=== PATIENT | male | born 1965 | race Caucasian/White ===

== ENCOUNTER 2022-05-27 10:37 | Inpatient (IN) | payer MEDICAID ==
[2022-05-27] VITALS (8 sets, daily range): BP systolic 98–154
[~2022-05-27] VITALS: Ht 177.8 cm; Wt 79.8 kg
[~2022-05-27 10:37] MED LIST: METOCLOPRAMIDE HCL 10 MG/2 ML VIAL IVP ONE
--- NOTE | 2022-05-27 10:41 | NUR ---
Placed in room 07 . Placed on cardiac nurse specialist, blood pressure machine and pulse oximeter. To gown for exam. Side rails up.
--- NOTE | 2022-05-27 10:42 | NUR ---
RECEIVED PT FROM CONNER CHAPPELL. PT BIB FRIEND FOR GENERALIZED WEAKNESS, N/V AND STATES HIS B/P IS HIGH. TELEMONITOR SHOWS SINUS TACH HR 130S., RESP 30BPM, NORMOTHERMIC. SKIN PALE, INTACT, NO EDEMA. DISTAL PULSES NORMAL. DENIES PAIN. SIDERAILS UP X2.
--- NOTE | 2022-05-27 10:50 | NUR ---
# 20 gauge angiocath placed to LAC. Use of asceptic technique. Opsite placed over site. Blood return noted. Blood for lab drawn from site. Flushed with 10 cc of normal saline. No evidence of infiltration noted. Patient tolerated well.
[2022-05-27] MEDS ORDERED: NACL 0.9% 1,000 ML IV ONE (11:00)
[2022-05-27] MEDS ORDERED: ONDANSETRON HCL 4 MG/2 ML VIAL IVP ONE ×2 (11:00→17:00)
[2022-05-27 11:12] LABS: BASOPHILS # (AUTO) 0.1 K/uL (0.0-0.2); BASOPHILS % (AUTO) 0.5 % (0.0-2.0); HEMOGLOBIN 9.1 g/dL (14.0-18.0); LYMPHOCYTES # (AUTO) 1.3 K/uL (1.0-5.5); LYMPHOCYTES % (AUTO) 11.8 % (20.5-51.5); MEAN CORPUSCULAR HEMOGLOBIN 31 pg (27-31); MEAN CORPUSCULAR HGB CONC 34 % (32-36); MEAN CORPUSCULAR VOLUME 91 fL (79.0-98.0); MONOCYTES # (AUTO) 0.8 K/uL (0.0-1.0); MONOCYTES % (AUTO) 7.7 % (1.7-9.3); NEUTROPHILS # (AUTO) 8.8 K/uL (1.8-7.7); PLATELET COUNT (AUTO) 229 K/uL (130-430); RED BLOOD CELL COUNT(AUTO) 2.96 MIL/uL (4.2-6.2); RED CELL DISTRIBUTION WIDTH 15.5 % (9.0-15.0); WHITE BLOOD COUNT (AUTO) 10.9 K/uL (4.8-10.8)
--- NOTE | 2022-05-27 11:15 | NUR ---
SCHEDULED MEDS GIVEN AND TOLERATED WELL .
[2022-05-27 11:25] LABS: ANION GAP 14 (5-15); CALCIUM 8.8 mg/dL (8.4-11.0); CHLORIDE 106 mmol/L (98-107); CREATININE 1.13 mg/dL (0.55-1.30); GLUCOSE 202 mg/dL (70-99); UREA NITROGEN, BLOOD 21 mg/dL (8-21)
[2022-05-27 11:28] LABS: GFR AFRICAN AMERICAN 85 mL/min (>90)
[2022-05-27 11:33] LABS: ALANINE AMINOTRANSFERASE 47 U/L (12-78); ALBUMIN 2.7 g/dL (3.4-4.8); ASPARTATE AMINOTRANSFERASE 84 U/L (10-37); LIPASE 160 U/L (73-393); TOTAL BILIRUBIN 2.2 mg/dL (0.0-1.0)
[2022-05-27] MEDS ORDERED: PIPERACILLIN/TAZO 3.375 GM in NS 50 ML IV ONE (12:45)
[2022-05-27] MEDS ORDERED: VANCOMYCIN HCL 1,000 MG in NS 250 ML IV ONE (12:45)
[2022-05-27] MEDS ORDERED: NACL 0.9% 1,500 ML IV ONE (12:45)
[2022-05-27] MEDS ORDERED: PANTOPRAZOLE SODIUM 40 MG TAB PO ONE (13:15)
[2022-05-27 14:10] LABS: INR 1.4 (0.80-1.20); PROTHROMBIN TIME 13.9 SECS (9.5-12.5)
[2022-05-27] MEDS ORDERED: FOLIC ACID 1 MG, THIAMINE HCL 100 MG, MAGNESIUM SULFATE 1 GM, MVI 10 ML in NACL 0.9% 1,... IV ONE (14:15)
[2022-05-27] MEDS ORDERED: PANTOPRAZOLE SODIUM 40 MG/VIAL (PROTONIX) IVP ONE (14:15)
--- NOTE | 2022-05-27 14:16 | NUR ---
SCHEDULED MEDS GIVEN AND TOLERATED WELL. DENIES PAIN
[2022-05-27] MEDS ORDERED: VANCOMYCIN HCL 1000 MG/VIAL IV ONE (14:18)
[2022-05-27] MEDS ORDERED: PIPERACILLIN/TAZOBACTAM 3.375 GM/VIAL (ZOSYN) IV ONE ×3 (14:19→22:40)
--- NOTE | 2022-05-27 14:33 | NUR ---
PT GIVEN PROTONIX 80MG IVP FOR GI BLEED. INFORMED CONSENT OBTAINED FOR CT SCAN WITH CONTRAST, PT TAKEN TO C/T SCAN AT THIS TIME.
[2022-05-27] MEDS ORDERED: THIAMINE HCL 100 MG, MAGNESIUM SULFATE 1 GM in NS 100 ML IV ONE (15:00)
[2022-05-27] MEDS ORDERED: FOLIC ACID 1 MG, MVI 10 ML in NACL 0.9% 1,000 ML IV ONE (15:00)
--- NOTE | 2022-05-27 16:01 | NUR ---
DR HOPE SPEAKING WITH STAT RAD
--- NOTE | 2022-05-27 16:13 | NUR ---
DR HOPE SPEAKING WITH CONSULT DR ACOSTA.
[2022-05-27] MEDS ORDERED: OCTREOTIDE ACETATE 50 MCG/ML AMP IVP ONE (16:15)
[2022-05-27 16:30] LABS: BASOPHILS % (AUTO) 0.3 % (0.0-2.0); HEMATOCRIT 22.1 % (36-54); LYMPHOCYTES # (AUTO) 1.2 K/uL (1.0-5.5); LYMPHOCYTES % (AUTO) 11.9 % (20.5-51.5); MEAN CORPUSCULAR HEMOGLOBIN 32 pg (27-31); MEAN CORPUSCULAR HGB CONC 34 % (32-36); MEAN CORPUSCULAR VOLUME 92 fL (79.0-98.0); MONOCYTES # (AUTO) 0.8 K/uL (0.0-1.0); MONOCYTES % (AUTO) 7.6 % (1.7-9.3); NEUTROPHILS # (AUTO) 8.2 K/uL (1.8-7.7); NEUTROPHILS % (AUTO) 80.2 % (40.0-70.0); PLATELET COUNT (AUTO) 182 K/uL (130-430); RED BLOOD CELL COUNT(AUTO) 2.39 MIL/uL (4.2-6.2); RED CELL DISTRIBUTION WIDTH 15.5 % (9.0-15.0); WHITE BLOOD COUNT (AUTO) 10.3 K/uL (4.8-10.8)
[2022-05-27 16:32] LABS: HEMOGLOBIN 7.5 g/dL (14.0-18.0)
[2022-05-27] MEDS ORDERED: ESOM5SUS PO (16:36)
[2022-05-27] MEDS ORDERED: METO50TA7 PO (16:36)
[2022-05-27] MEDS: OCTREOTIDE ACETATE 1,250 MCG in NS 248.75 ML IV SCH ×2 (16:57→18:19)
[2022-05-27] MEDS ORDERED: PHYTONADIONE 10 MG in NS 50 ML IV ONE (17:00)
--- NOTE | 2022-05-27 17:10 | NUR ---
DR. MARTINEZ AND DR. NICHOLSON MADE AWARE PT IS VOMITING BRIGHT RED BLOOD X2. PT HGB WAS 9.1 AT 1100 AND THE NEW HGB IS 7/5. DR. NICHOLSON GAVE ORDER TO INTUBATE PT, OBTAIN CONSENT FOR STAT EGD. GIVE 2 UNIT PRBC WIDE OPEN WITHIN 2 HOURS.
[2022-05-27] MEDS: PANTOPRAZOLE SODIUM 40 MG in NS 50 ML IV SCH (17:15)
--- NOTE | 2022-05-27 17:55 | NUR ---
ONE UNIT OF 2 UNITS PRBC INITITATED.
[2022-05-27] MEDS ORDERED: ONDANSETRON HCL 4 MG/2 ML VIAL IVP PRN ×2 (18:00→22:00)
--- NOTE | 2022-05-27 18:00 | NUR ---
SPOKE TO DR. MARTINEZ RECEIVED ORDERS TO UPGRADE PATIENT TO ICU
--- NOTE | 2022-05-27 18:03 | NUR ---
Admit bed requested Patient will be admitted to care of . Admitted to ICU unit. Diagnosis GI BLEED Inpatient (Yes or No) Y Observation (Yes or No) N Orientation concerns or request close to nursing station (Yes or No) N Covid Status - On vent or bipap Y Isolation requirements INFLUENZA B+ Needs a sitter From Home (Yes or if No enter name of facility) Requires Dialysis (Yes or No) N Med Rec Completed (Yes of No) Y
--- NOTE | 2022-05-27 18:10 | NUR ---
DR. HOPE AT BEDSIDE TO INITIATE ETT. 20MG IVP ETOMIDATE AND 120MG IVP GIVEN. R/T ASSISTING AT BEDSIDE. 7.52 ETT PLACED AT 22 LIPLINE. PROPOFOL INITIATED AT 20MG/KG/MIN PER DR. HOPE. PT AGITATED AND FIGHTING VENT, 20MG PROPOFOL IVP GIVEN. PT MAINTAINING AGITATION PROPOFOL INCREASED TO 40MCG/KG/MIN. PT FIGHTING VENT 20MG IVP GIVEN X2. FENTANYL 25MCG/HOUR INITATED. PT HYPOTENSIVE 88/45 500 CC BOLUS INTIATED. FENTANYL STOPPED. PT FIGHTING VENT 30MCG PROPOFOL IVP GIVEN IN A SERIES OF 3 IVP. PT B/P INPROVED 175/ 60. FENTANYL STARTED AGAIN AT 25MCG/HOUR. PT RECEIVED 2 NEW IV LINES, 20G TO RH AND 20 TO LH.
[2022-05-27] MEDS ORDERED: PROPOFOL DRIP 100 ML IV PRN ×3 (18:15→22:30)
[2022-05-27] MEDS ORDERED: FENTANYL CITRATE-0.9 % NACL/PF 100 ML IV PRN ×2 (18:15→22:00)
[2022-05-27] MEDS ORDERED: FENTANYL CITRATE-0.9 % NACL/PF 100 ML IV ONE (18:29)
--- NOTE | 2022-05-27 18:40 | NUR ---
SECOND UNIT OF 2 UNITS ORDERED PRBC INITIATED.
[2022-05-27] MEDS ORDERED: METOCLOPRAMIDE HCL 10 MG/2 ML VIAL ONE (18:54)
[2022-05-27] MEDS ORDERED: EPINEPHrine JECT 0.1 MG/ML SYR ONE (19:04)
--- NOTE | 2022-05-27 19:29 | NUR ---
PT STABLE, ON PROPOFOL AT 40MCG/KG/MINUTE. FENTANYL RUNNING AT 25MCG/HOUR, PROTONIX 10MG/HOUR.
[2022-05-27] MEDS ORDERED: NS 500 ML IV ONE (19:30)
[2022-05-27] MEDS ORDERED: MIDAZOLAM HCL 5 MG/5 ML VIAL ONE (19:33)
--- NOTE | 2022-05-27 19:48 | NUR ---
ENDORSED PT YOUNG RN WITH GI. ALL QUESTIONS AND CONCERNS ADDRESSED.
[2022-05-27] MEDS ORDERED: PROPOFOL DRIP 100 ML IV ONE (19:54)
[2022-05-27] MEDS ORDERED: PIPERACILLIN/TAZO 3.375/DEX-IS 50 ML IV SCH (20:00)
[2022-05-27 20:48] LABS: HEMOGLOBIN 8.4 g/dL (14.0-18.0)
--- NOTE | 2022-05-27 20:50 | NUR ---
Patient received in ICU from GI nurses. Patient intubated/sedated. Friend in waiting room. Orders to be completed. New orders to be clarified and received. transportation analyst and bedside RN unsure as to what the endorsed transfer order is. Dr Griggs to be paged to clarify. Patient pulling at lines tubes and requiring increased sedation.
[2022-05-27 20:53] LABS: BASOPHILS # (AUTO) 0.1 K/uL (0.0-0.2); BASOPHILS % (AUTO) 0.7 % (0.0-2.0); HEMATOCRIT 24.2 % (36-54); LYMPHOCYTES # (AUTO) 1.5 K/uL (1.0-5.5); LYMPHOCYTES % (AUTO) 11.3 % (20.5-51.5); MEAN CORPUSCULAR HEMOGLOBIN 32 pg (27-31); MEAN CORPUSCULAR HGB CONC 35 % (32-36); MEAN CORPUSCULAR VOLUME 92 fL (79.0-98.0); MONOCYTES # (AUTO) 1.2 K/uL (0.0-1.0); MONOCYTES % (AUTO) 9.3 % (1.7-9.3); NEUTROPHILS # (AUTO) 10.6 K/uL (1.8-7.7); NEUTROPHILS % (AUTO) 78.7 % (40.0-70.0); PLATELET COUNT (AUTO) 155 K/uL (130-430); RED BLOOD CELL COUNT(AUTO) 2.64 MIL/uL (4.2-6.2); RED CELL DISTRIBUTION WIDTH 15.6 % (9.0-15.0); WHITE BLOOD COUNT (AUTO) 13.5 K/uL (4.8-10.8)
[2022-05-27] MEDS ORDERED: CALCIUM CHLORIDE 1 GM in NS 100 ML IV PRN (21:45)
[2022-05-27] MEDS ORDERED: PANTOPRAZOLE SODIUM 40 MG/VIAL (PROTONIX) ONE (21:55)
--- NOTE | 2022-05-27 22:00 | NUR ---
DR MICHELLE Griggs called giving orders to continue Remberto varghese.
--- NOTE | 2022-05-27 22:15 | NUR ---
HIGH ALERT NOTE: Called Dr. Griggs back at [id number] identified within the medical roster to verify physician authenticity. For Diprivan drip order. Orders also received, 1.NS @ 100ml/hr 2.Continue Diprivan drip for sedation while on Vent. 3.May start Levophed drip if needed to maintain BP. 4.Transfuse 1unit of PRBC 5.Transfuse 2units of FFP after unit of PRBC 6.CBC 1hour post transfusion of PRBC & FFP.
[2022-05-27] MEDS ORDERED: NOREPINEPHRINE BITARTRATE 4 MG in D5W 246 ML IV PRN (22:30)
[2022-05-27] MEDS ORDERED: NACL 0.9% 1,000 ML IV SCH (22:30)
--- NOTE | 2022-05-27 22:36 | NUR ---
CONSULTATION PAGED/CALLED Reason for Consultation: Intubated Person Who was Notified: Nikki Consulting Physician: Dr Merida Field Manager Specialty: Pulmonary Ordering Physician: Dr Griggs
[2022-05-27 23:18] LABS: HEMATOCRIT 26.1 % (36-54)
--- NOTE | 2022-05-27 23:20 | NUR ---
Dr Guallpa notified of consult and patient ABG/vent settings. Ordered increase of Propofol up to 70mcg/kg/min PRN as patient continues to pull at lines/tubes under current sedation.
[2022-05-27] MEDS ORDERED: FLU VACC QS2022-23(6MOS UP)/PF 0.5 ML/SYR SYRINGE I.M. PRN (23:30)
[2022-05-27] MEDS ORDERED: SUCCINYLCHOLINE CHLORIDE 20 MG/ML(QUELICIN) IVP ONE (23:50)
[2022-05-27] MEDS ORDERED: ETOMIDATE 20 MG/ 10 ML VIAL (AMIDATE) IVP ONE (23:50)
[2022-05-28] VITALS: BP_SYST 88
[2022-05-28] MEDS: PANTOPRAZOLE SODIUM 40 MG in NS 50 ML IV SCH (00:12)
[2022-05-28 00:22] LABS: BASOPHILS # (AUTO) 0.1 K/uL (0.0-0.2); BASOPHILS % (AUTO) 0.5 % (0.0-2.0); EOSINOPHILS % (AUTO) 0.1 % (0.0-4.0); HEMATOCRIT 26.3 % (36-54); LYMPHOCYTES # (AUTO) 2.1 K/uL (1.0-5.5); LYMPHOCYTES % (AUTO) 14.9 % (20.5-51.5); MEAN CORPUSCULAR HEMOGLOBIN 32 pg (27-31); MEAN CORPUSCULAR HGB CONC 34 % (32-36); MEAN CORPUSCULAR VOLUME 92 fL (79.0-98.0); NEUTROPHILS # (AUTO) 10.7 K/uL (1.8-7.7); NEUTROPHILS % (AUTO) 77.5 % (40.0-70.0); PLATELET COUNT (AUTO) 161 K/uL (130-430); RED BLOOD CELL COUNT(AUTO) 2.87 MIL/uL (4.2-6.2); RED CELL DISTRIBUTION WIDTH 15.4 % (9.0-15.0); WHITE BLOOD COUNT (AUTO) 13.8 K/uL (4.8-10.8)
[2022-05-28] MEDS ORDERED: NS 1000 ML IV.SOLN IV ONE (00:30)
[2022-05-28 01:00] VITALS: BP_SYST 104
--- NOTE | 2022-05-28 01:16 | NUR ---
Report given to ACLS transport and called to [facility] trauma unit nurse Kostas. Patient's friend Shiraz called as well. See vital signs immediately prior to transfer. 1L bolus currently infusing, unit of PRBC currently infusing upon transfer.
== END 2022-05-28 01:30 | disposition home or self-care (01) ==
LOC: SED 10:37 → STU 14:15 → SIC 20:50
PROVIDERS: ADMIT Internal Medicine; ATTEND Internal Medicine
PROC: 5A1935Z Respiratory Ventilation, Less than 24 Consecutive Hours (ICD-10-PCS; 2022-05-27)
PROC: 30233N1 Transfusion of Nonautologous Red Blood Cells into Peripheral Vein, Percutaneous Approach (ICD-10-PCS; 2022-05-27)
PROC: 0BH17EZ Insertion of Endotracheal Airway into Trachea, Via Natural or Artificial Opening (ICD-10-PCS; 2022-05-27)
PROC: 06L38CZ Occlusion of Esophageal Vein with Extraluminal Device, Via Natural or Artificial Opening Endoscopic (ICD-10-PCS; principal; 2022-05-27 19:00)
DX: K74.60 Unspecified cirrhosis of liver (principal); I85.11 Secondary esophageal varices with bleeding; E44.0 Moderate protein-calorie malnutrition; I86.4 Gastric varices; D68.9 Coagulation defect, unspecified; D62 Acute posthemorrhagic anemia; K20.90 Esophagitis, unspecified without bleeding; I10 Essential (primary) hypertension; F10.20 Alcohol dependence, uncomplicated; Y90.9 Presence of alcohol in blood, level not specified; K29.70 Gastritis, unspecified, without bleeding; Z20.822 Contact with and (suspected) exposure to COVID-19; Z68.25 Body mass index [BMI] 25.0-25.9, adult
CPT/HCPCS: 36415; 36600; 43255; 71045; 76376; 80053; 82803-TC; 83605; 83690; 84484; 85018; 85025; 85610-TC; 86886; 86900; 86901; 86920; 87040; 94002; 94640; 96361; 96374; 99291; C9113; J0171; J0330; J2250; J2354; J2405; J2543; J2704; J2765; J3010; J3370; J3411; J3430; J3475; J3490; J7030; J7040; J7050; J7060; P9021; Q9967